=== PATIENT | female | born 1950 ===

== ENCOUNTER 2018-03-24 11:37 | Emergency (ER) | payer MEDICARE ==
--- NOTE | 2018-03-24 11:52 | EDM.PDOC ---
ED HPI GENERAL MEDICAL PROBLEM - General Chief Complaint: Allergic Reaction Stated Complaint: MEDICAL VIA AMBULANCE Time Seen by Provider: 03/24/18 11:52 Source of Information: Reports: Patient, Family History Limitations: Reports: No Limitations - History of Present Illness INITIAL COMMENTS - FREE TEXT/NARRATIVE: PT ARRIVED WITH A ALLERGIC REACTION THAT STARTED EATRLY THIS AM. sHE WAS COVERED WITH HIVES AT THIS TIME AND SHE HAD TAKEN A EPIPEN AND A BENADRYL PRIOR TO ARRIVAL. tHIS WAS TAKEN EARLY THIS AM. Onset: Today, Sudden Duration: Hour(s): Location: Reports: Generalized Associated Symptoms: Reports: Malaise - Related Data Allergies Allergy/AdvReac Type Severity Reaction Status Date / Time BEE STING Allergy Anaphylactic Uncoded 03/24/18 11:46 Shock SHELL FISH Allergy Swollen Uncoded 03/24/18 11:46 Tongue Home Meds: Home Meds Alendronate [Fosamax] 1 tab PO WEEKLY 03/24/18 [History] Aspirin [Halfprin] 1 tab PO DAILY 03/24/18 [History] EPINEPHrine [Auvi-Q] 1 injection SQ ONETIME 03/24/18 [History] Formoterol/Mometasone [Dulera 100 MCG/5 MCG] 2 puff INH BID 03/24/18 [History] Gabapentin [Neurontin] 1 tab PO BEDTIME 03/24/18 [History] Simvastatin [Zocor] 1 tab PO BEDTIME 03/24/18 [History] Warfarin [Coumadin] 1 tab PO ASDIRECTED 03/24/18 [History] Warfarin [Coumadin] 3.75 mg PO ASDIRECTED 03/24/18 [History] ED ROS ALLERGIC REACTION - Review of Systems Review Of Systems: See Below Constitutional: Reports: No Symptoms HEENT: Reports: No Symptoms, Other ( TIGHYNESS IN THE THROAT. ) Respiratory: Reports: No Symptoms Cardiovascular: Reports: No Symptoms Endocrine: Reports: No Symptoms GI/Abdominal: Reports: No Symptoms : Reports: No Symptoms Musculoskeletal: Reports: No Symptoms Skin: Reports: Rash, Urticaria ED EXAM GENERAL NO PERIP PULSE - Physical Exam Exam: See Below Text/Narrative:: pt arrived with hives over her entire body. She broke out about 6 thirty this am. She did not get clearing of the hives and it appeared to be getting worse so ambulance was called. She was not having resp difficulty. tHERE IS A CONCERN ABOUT HER REACTING TO A MEDICATION THAT WAS STOPPED 4-5 DAYS AGO. Exam Limited By: No Limitations General Appearance: Alert, Anxious, Mild Distress Ears: Normal TMs Nose: Normal Inspection Throat/Mouth: Normal Inspection Head: Atraumatic Neck: Normal Inspection Respiratory/Chest: No Respiratory Distress Cardiovascular: Regular Rate, Rhythm GI/Abdominal: Soft, Non-Tender (Female) Exam: Deferred Rectal (Female) Exam: Deferred Back Exam: Normal Inspection Extremities: Normal Inspection Neurological: Alert, Oriented, Normal Cognition Psychiatric: Normal Affect Course - Vital Signs Last Recorded V/S: Last Vital Signs Temp 37.6 C 03/24/18 12:10 Pulse 109 H 03/24/18 13:55 Resp 21 H 03/24/18 13:55 BP 108/61 03/24/18 13:55 Pulse Ox 95 03/24/18 13:55 - Orders/Labs/Meds Labs: Laboratory Tests 03/24/18 03/24/18 03/24/18 Range/Units 11:56 11:56 11:56 WBC 8.6 (4.5-11.0) K/uL RBC 5.28 (3.30-5.50) M/uL Hgb 15.8 H (12.0-15.0) g/dL Hct 47.4 (36.0-48.0) % MCV 90 (80-98) fL MCH 30 (27-31) pg MCHC 33 (32-36) % Plt Count 305 (150-400) K/uL Neut % (Auto) 92 H (36-66) % Lymph % (Auto) 5 L (24-44) % Towner % (Auto) 3 (2-6) % Eos % (Auto) 0 L (2-4) % Baso % (Auto) 0 (0-1) % PT 39.9 H (9.5-12.0) sec INR 3.92 H (0.80-1.20) Sodium 140 (140-148) mmol/L Potassium 3.6 (3.6-5.2) mmol/L Chloride 106 (100-108) mmol/L Carbon Dioxide 27 (21-32) mmol/L Anion Gap 6.8 (5.0-14.0) mmol/L BUN 10 (7-18) mg/dL Creatinine 0.9 (0.6-1.0) mg/dL Est Cr Clr Drug Dosing 51.83 mL/min Estimated GFR (MDRD) > 60 (>60) Glucose 142 H (74-106) mg/dL Calcium 9.5 (8.5-10.1) mg/dL Total Bilirubin 0.8 (0.2-1.0) mg/dL AST 43 H (15-37) U/L ALT 53 (12-78) U/L Alkaline Phosphatase 64 (46-116) U/L Total Protein 6.6 (6.4-8.2) g/dL Albumin 3.2 L (3.4-5.0) g/dL Globulin 3.4 (2.3-3.5) g/dL Albumin/Globulin Ratio 0.9 L (1.2-2.2) Meds: Medications Discontinued Medications Generic Name Dose Route Start Last Admin Trade Name Freq PRN Reason Stop Dose Admin Diphenhydramine HCl 25 mg 03/24/18 12:20 03/24/18 13:22 Benadryl IVPUSH 03/24/18 12:21 25 mg ONETIME ONE Administration Diphenhydramine HCl 25 mg 03/24/18 13:29 03/24/18 13:39 Benadryl PO 03/24/18 13:30 25 mg ONETIME ONE Administration Diphenhydramine HCl 50 mg 03/24/18 15:43 03/24/18 15:57 Benadryl PO 03/24/18 15:44 50 mg ONETIME ONE Administration Epinephrine HCl 0.2 mg 03/24/18 12:21 03/24/18 13:23 Adrenalin SUBCUT 03/24/18 12:22 0.2 mg ONETIME ONE Administration Epinephrine HCl 0.2 mg 03/24/18 14:31 03/24/18 14:42 Adrenalin SUBCUT 03/24/18 14:32 0.2 mg ONETIME ONE Administration Famotidine 20 mg 03/24/18 12:22 03/24/18 13:22 Pepcid PO 03/24/18 12:23 20 mg ONETIME ONE Administration Sodium Chloride 1,000 mls @ 500 mls/hr 03/24/18 14:45 03/24/18 14:37 Normal Saline IV 500 mls/hr ASDIRECTED LALITHA Administration Lorazepam 0.5 mg 03/24/18 14:30 03/24/18 14:42 Ativan PO 03/24/18 14:31 0.5 mg ONETIME ONE Administration Methylprednisolone Sodium Succinate 125 mg 03/24/18 12:20 03/24/18 13:22 Solu-Medrol IVPUSH 03/24/18 12:21 125 mg ONETIME ONE Administration - Re-Assessments/Exams Free Text/Narrative Re-Assessment/Exam: 03/25/18 07:42 PT HAS BEEN GIVEN EPI TWICE SINCE ARRIVAL. sHE WAS GIVEN SOLU MEDROL 125. sHE WAS GIVEN BENADRY TWICE. Departure - Departure Time of Disposition: 15:47 Disposition: Home, Self-Care 01 Condition: Fair Clinical Impression: Allergic reaction - Discharge Information Instructions: Allergies, Adult, [id number] Referrals: PCP,None [Primary Care Provider] - Forms: ED Department Discharge Care Plan Goals: TRAVEL BACK TO [facility]. BENADRYL 50MG Q6H IN ROUTE. sEE REGULAR PHYSIAN REGARDING THE HIVES.
[2018-03-24] MEDS ORDERED: methylPREDNISolone Sodium Succinate 125 MG/2 ML SDV IVPUSH ONE (12:20)
[2018-03-24] MEDS ORDERED: diphenhydrAMINE 50 MG/ML SDV IVPUSH ONE (12:20)
[2018-03-24] MEDS ORDERED: EPINEPHrine 1 MG/ML SDV SUBCUT ONE ×2 (12:21→14:31)
[2018-03-24] MEDS ORDERED: Famotidine 20 MG Tab PO ONE (12:22)
[2018-03-24] MEDS ORDERED: diphenhydrAMINE 25 MG Cap PO ONE ×2 (13:29→15:43)
[2018-03-24] MEDS ORDERED: LORazepam 0.5 MG Tab PO ONE (14:30)
[2018-03-24] MEDS ORDERED: Sodium Chloride 0.9% 1,000 ML IV SCH (14:45)
== END 2018-03-24 16:19 | disposition home or self-care (01) ==
LOC: JP.ED 11:37
DX: T78.40XA Allergy, unspecified, initial encounter (principal); Z91.030 Bee allergy status; Z91.013 Allergy to seafood; Z79.82 Long term (current) use of aspirin
CPT/HCPCS: 36415; 80053; 85025; 85610; 96361; 96372; 96374; 96375; 99284; A9270; J0171; J1200; J2930; J7030